=== PATIENT | female | born 1990 | race Caucasian/White ===

== ENCOUNTER 2017-12-14 23:09 | Emergency (ER) | payer OTHER ==
--- NOTE | 2017-12-14 23:48 | EDPHY ---
General Time Seen by Provider: 12/14/17 23:30 Narrative: CHIEF COMPLAINT: Pelvic pain after sex HISTORY OF PRESENT ILLNESS: Patient presents with complaints of pelvic pain after intercourse. She reports having intercourse with her around 10:00 p.m.. Toward the end of the intercourse, she developed suprapubic and left-sided abdominal pain. She rated this as severe, 8/10 at the time. The pain has improved to a 4/10 but is still present. No nausea. No vomiting. No radiating pain. No chest, back or epigastric pain. No flank pain. No urinary complaints. No previous incidence of this. She has no use of oral contraceptive, recently having her IUD removed. No bleeding. No vaginal complaints. REVIEW OF SYSTEMS: 10 systems were reviewed and negative with the exception of the elements mentioned in the history of present illness. PCP: [facility] physician Dr. Byrd SPECIALISTS: None PAST MEDICAL HISTORY: None PAST SURGICAL HISTORY: No surgical history SOCIAL HISTORY: Never smoker. Lives independently with her spouse. Works as an emergency department nurse FAMILY HISTORY: Noncontributory EXAMINATION: General Appearance: Alert, no distress Head: normocephalic, atraumatic Eyes: Pupils equal and round, no conjunctival pallor or injection ENT, Mouth: Mucous membranes moist Neck: Normal inspection, supple, non-tender Respiratory: Lungs are clear to auscultation Cardiovascular: Regular rate and rhythm Gastrointestinal: Abdomen is soft and nondistended. Bowel sounds present all 4 quadrants. No palpable mass. Mild left lower quadrant tenderness. No guarding. No tympany rigidity. No CVA tenderness. Benign abdominal examination exam deferred Back: non-tender, no bony abnormalities Neurological: A&O, nonfocal, normal gait Skin: Warm and dry, no rash Extremities: Nontender, no pedal edema Psychiatric: Mood and affect normal DIFFERENTIAL DIAGNOSES: Including but not limited to ovarian cyst, ovarian torsion, uterine injury, vaginal cuff injury MDM: 11:30 p.m. Dyspareunia and suprapubic pain post intercourse. Patient's pain is significantly improved at time of examination. She is declining pain medication. She is in no acute distress with vital signs well within normal limits. She does not meet SIRS criteria. She has no vaginal complaints. I have ordered laboratory studies and ultrasound of the pelvis. 12:20 a.m. Notified by radiologist Dr. Galvan. Ultrasound of the pelvis reveals a an involuted cyst on the left with some pelvic fluid. No other acute findings. 12:25 a.m. Patient re-evaluated. She is feeling significantly better with no pain at this time. I did offer CT scan the abdomen pelvis for further delineation, but she has declined. I do feel it is reasonable at this time to treat her symptomatically. I feel she is stable for discharge home. We discussed ibuprofen for probable uterine cramps from irritation from the pelvic fluid. We discussed strict ED precautions, requiring that she return here tomorrow morning if she does not have complete resolution of pain. We discussed returning here sooner for any return of pain, fever, nausea, vomiting, right lower quadrant pain. She will contact her primary care physician tomorrow morning. she is comfortable this plan and discharged home stable condition. SUPERVISION: This patient was independently evaluated without direct involvement of or examination by the attending physician. CONSULTATION: None - Diagnostics Imaging Results: Imaging Impressions Pelvic/Renal Ultrasound 12/14/17 23:48 Impression: Normal ultrasound pelvis. Involuted follicular cyst suspected on the left with moderate amount of free fluid. Findings discussed with Omar [place] PAC at 0:18 hour, 12/15/2017. - History Smoking Status: Never smoked - Objective Vital Signs: Initial Vital Signs Temperature (C) 97.7 F 12/14/17 23:24 Heart Rate 83 12/14/17 23:24 Respiratory Rate 16 12/14/17 23:24 Blood Pressure 101/60 12/14/17 23:24 O2 Sat (%) 98 12/14/17 23:24 O2 Delivery Mode Room Air Allergies/Adverse Reactions: No Known Allergies Allergy (Unverified 12/14/17 23:27) Home Medications: Medication Instructions Recorded NK [No Known Home Meds] 12/14/17 Laboratory Results: Laboratory Results 12/14/17 23:44 12/14/17 23:44 12/14/17 12/14/17 12/14/17 23:44 23:44 23:44 WBC RBC Hgb Hct MCV MCH MCHC RDW Plt Count MPV Neut % (Auto) Lymph % (Auto) [place] % (Auto) Eos % (Auto) Baso % (Auto) Nucleat RBC Rel Count Absolute Neuts (auto) Absolute Lymphs (auto) Absolute Monos (auto) Absolute Eos (auto) Absolute Basos (auto) Absolute Nucleated RBC Immature Gran % Immature Gran # Sodium 143 mEq/L mEq/L (135-145) Potassium 3.9 mEq/L mEq/L (3.3-5.0) Chloride 108 mEq/L mEq/L (97-110) Carbon Dioxide 24 mEq/l mEq/l (22-31) Anion Gap 11 mEq/L mEq/L (8-16) BUN 15 mg/dL mg/dL (7-23) Creatinine 0.8 mg/dL mg/dL (0.6-1.0) Estimated GFR > 60 Glucose 93 mg/dL mg/dL (70-100) Calcium 9.2 mg/dL mg/dL (8.5-10.4) Lipase Cancelled 190 IU/L IU/L (23-300) Beta HCG, Qual NEGATIVE Urine Color Urine Appearance Urine pH Ur Specific [place] Urine Protein Urine Ketones Urine Blood Urine Nitrate Urine Bilirubin Urine Urobilinogen Ur Leukocyte Esterase Urine RBC Urine WBC Ur Epithelial Cells Urine Bacteria Urine Mucus Urine Sperm Urine Glucose 12/14/17 12/14/17 23:44 23:35 WBC 5.74 10^3/uL 10^3/uL (3.80-9.50) RBC 4.33 10^6/uL 10^6/uL (4.18-5.33) Hgb 13.7 g/dL g/dL (12.6-16.3) Hct 40.5 % % (38.0-47.0) MCV 93.5 fL fL (81.5-99.8) MCH 31.6 pg pg (27.9-34.1) MCHC 33.8 g/dL g/dL (32.4-36.7) RDW 11.9 % % (11.5-15.2) Plt Count 269 10^3/uL 10^3/uL (150-400) MPV 9.0 fL fL (8.7-11.7) Neut % (Auto) 49.7 % % (39.3-74.2) Lymph % (Auto) 37.8 % % (15.0-45.0) [place] % (Auto) 8.2 % % (4.5-13.0) Eos % (Auto) 3.1 % % (0.6-7.6) Baso % (Auto) 0.9 % % (0.3-1.7) Nucleat RBC Rel Count 0.0 % % (0.0-0.2) Absolute Neuts (auto) 2.85 10^3/uL 10^3/uL (1.70-6.50) Absolute Lymphs (auto) 2.17 10^3/uL 10^3/uL (1.00-3.00) Absolute Monos (auto) 0.47 10^3/uL 10^3/uL (0.30-0.80) Absolute Eos (auto) 0.18 10^3/uL 10^3/uL (0.03-0.40) Absolute Basos (auto) 0.05 10^3/uL 10^3/uL (0.02-0.10) Absolute Nucleated RBC 0.00 10^3/uL 10^3/uL (0-0.01) Immature Gran % 0.3 % % (0.0-1.1) Immature Gran # 0.02 10^3/uL 10^3/uL (0.00-0.10) Sodium Potassium Chloride Carbon Dioxide Anion Gap BUN Creatinine Estimated GFR Glucose Calcium Lipase Beta HCG, Qual Urine Color YELLOW Urine Appearance CLEAR Urine pH 5.0 (5.0-7.5) Ur Specific [place] 1.017 (1.002-1.030) Urine Protein NEGATIVE (NEGATIVE) Urine Ketones TRACE H (NEGATIVE) Urine Blood NEGATIVE (NEGATIVE) Urine Nitrate NEGATIVE (NEGATIVE) Urine Bilirubin NEGATIVE (NEGATIVE) Urine Urobilinogen NEGATIVE EU EU (0.2-1.0) Ur Leukocyte Esterase NEGATIVE (NEGATIVE) Urine RBC 1-3 /hpf /hpf (0-3) Urine WBC 1-3 /hpf /hpf (0-3) Ur Epithelial Cells TRACE /lpf /lpf (NONE-1+) Urine Bacteria TRACE /hpf H /hpf (NONE SEEN) Urine Mucus TRACE /lpf /lpf (NONE-1+) Urine Sperm PRESENT /hpf H /hpf (NONE SEEN) Urine Glucose NEGATIVE (NEGATIVE) Medications Given: Discontinued Medications Sodium Chloride (Ns) 1,000 mls @ 0 mls/hr IV EDNOW ONE; Wide Open PRN Reason: Protocol Stop: 12/15/17 00:12 Last Admin: 12/15/17 00:45 Dose: 1,000 mls Oxycodone/Acetaminophen (Percocet 5/325mg Prepack#4) 1 btl TAKELEONA EDNOW ONE Stop: 12/15/17 00:32 Last Admin: 12/15/17 00:57 Dose: 1 btl Departure - Departure Disposition: Home, Routine, Self-Care Clinical Impression: Dyspareunia in female, Ruptured ovarian cyst Condition: Good Instructions: Oxycodone/Acetaminophen (By mouth), Ovarian Cyst (ED), Dyspareunia in Women (DC) Additional Instructions: 1. Contact her primary care physician tomorrow morning for repeat evaluation 2. Pelvic rest for 48-72 hours 3. Return to emergency department if you do not have complete resolution of your pain but tomorrow morning 4. Return to emergency department if you have any return of pain, vaginal pain, vaginal bleeding, right lower quadrant pain, fever, nausea vomiting Referrals: Gwendolyn Dickerson [Physician Facing [place]] - As per Instructions Cecile Gomez MD [Medical Doctor] - As per Instructions Stand Alone Forms: Work Excuse
[2017-12-14 23:52] LABS: PLATELET COUNT 269 10^3/uL (150-400)
[2017-12-15] MEDS ORDERED: NS 1,000 ML IV ONE (00:11)
[2017-12-15] MEDS ORDERED: OXYCODONE/APAP 5/325MG PREPACK#4 BTL TAKEHOME ONE (00:31)
[2017-12-15 00:47] VITALS: BP 107/66
== END 2017-12-15 01:16 | disposition home or self-care (01) ==
DX: N83.292 Other ovarian cyst, left side (principal)